=== PATIENT | male | born 1985 | race Caucasian/White ===

== ENCOUNTER 2016-10-22 20:13 | Emergency (ER) | payer OTHER ==
--- NOTE | ~2016-10-22 | CR172 ---
[facility] A Service of [facility] RADIOLOGY TEXT RESULTS PATIENT: JOSE FRENCH LOCATION: [facility] : 81 UNIT #: [id number] AGE: [address]: Osmany Bell MD SEX: M ORDER DR: [id number] [facility] [address] [facility] [place], [place] [address] [id number] E MR#: [id number] Acc #: [id number] NAME: JOSE FRENCH : 1985 SEX: M STUDY DATE/TIME: 10/22/2016 19:50 UNIT: [facility] ROOM: STUDY DESCRIPTION: CR Knee 3 Views Lt Attending Physician: Osmany Bell M.D. Ordering Physician: Osmany Bell M.D. Primary Care Physician: No Primary Care Physician MEDICAL IMAGING REPORT This report is preliminary unless electronic signature is present EXAM 3 views left knee DATE OF EXAMINATION 10/22/2016 HISTORY Left knee pain and swelling since 10/22/2016 after diving for basketball. COMPARISON None FINDINGS AP and lateral projection of the knee shows smooth articular anatomy without indication of fracture or dislocation at the major weight-bearing surface of the knee. There is no indication of radiopaque foreign body about the knee surface or joint effusion. IMPRESSION Normal knee. Dictated by... Jennifer Morris M.D. THIS IS AN ELECTRONICALLY VERIFIED REPORT Jennifer Morris M.D. at 10/23/2016 2:04 PM Marifer TD: 10/23/2016 10:16 JOB #: [id number] MEDICAL IMAGING REPORT COPY
[~2016-10-22 20:13] MED LIST: LORTAB 10/500 T1 TAB PO; LORTAB 5/500 TA1 TA1 PO; PREDNISONE PO
== END 2016-10-22 20:41 | disposition home or self-care (01) ==
LOC: CFTX 20:13
DX: S83.92XA Sprain of unspecified site of left knee, initial encounter (principal); F17.210 Nicotine dependence, cigarettes, uncomplicated; Z88.0 Allergy status to penicillin; Z88.5 Allergy status to narcotic agent; X50.1XXA Overexertion from prolonged static or awkward postures, initial encounter; Y92.89 Other specified places as the place of occurrence of the external cause
CPT/HCPCS: 29530; 73562; 99283

== ENCOUNTER → 2016-11-08 00:15 | Emergency (ER) | payer OTHER | END | disposition left against medical advice (07) | LOC: CED 00:15 | DX: Z53.21 Procedure and treatment not carried out due to patient leaving prior to being seen by health care provider (principal) ==

== ENCOUNTER 2017-01-25 20:06 | Emergency (ER) | payer OTHER ==
--- NOTE | ~2017-01-25 | CR111 ---
[facility] A Service of [facility] RADIOLOGY TEXT RESULTS PATIENT: JOSE FRENCH LOCATION: [facility] : 81 UNIT #: [id number] AGE: [address]: Ina Bailon APRN SEX: M ORDER DR: [id number] [place], [place] [address] [id number] E MR#: [id number] Acc #: [id number] NAME: JOSE FRENCH. : 1985 SEX: M STUDY DATE/TIME: 01/25/2017 21:02 UNIT: [facility] ROOM: STUDY DESCRIPTION: CR Finger 2 View 3rd Rt Attending Physician: Ina Bailon A.P.R.N. Ordering Physician: Ina Bailon A.P.R.N. MEDICAL IMAGING REPORT This report is preliminary unless electronic signature is present EXAM Right third digit series INDICATIONS Laceration and swelling to the distal right third digit after injury today. TECHNIQUE 3 views of the right third digit. COMPARISON STUDIES None. FINDINGS There is a minimally-displaced fracture along the proximal dorsal aspect of the distal phalanx of the third digit. Articular involvement. IMPRESSION Small minimally-displaced fracture along the proximal dorsal aspect distal phalanx right third digit. Dictated by... Florian Fuentes M.D. THIS IS AN ELECTRONICALLY VERIFIED REPORT Florian Fuentes M.D. at 01/26/2017 3:08 PM EED/pcl TD: 01/25/2017 22:44 JOB #: [id number] MEDICAL IMAGING REPORT [facility] A Service of [facility] RADIOLOGY TEXT RESULTS PATIENT: JOSE FRENCH LOCATION: [facility] : 81 UNIT #: [id number] AGE: [address]: Ina Bailon APRN SEX: M ORDER DR: Page 1 of 1 COPY
== END 2017-01-25 22:45 | disposition home or self-care (01) ==
LOC: CFTX 20:06 → CED 20:06 → CFTX 20:28
DX: S62.632A Displaced fracture of distal phalanx of right middle finger, initial encounter for closed fracture (principal); F17.210 Nicotine dependence, cigarettes, uncomplicated; Z88.0 Allergy status to penicillin; W21.03XA Struck by baseball, initial encounter; Y92.830 Public park as the place of occurrence of the external cause
CPT/HCPCS: 29130; 73140; 99283

== ENCOUNTER 2017-01-27 23:16 | Emergency (ER) | payer OTHER | END 2017-01-28 00:05 | disposition home or self-care (01) | LOC: CFTX 23:16 → CED 23:16 → CFTX 23:59 | DX: S62.634A Displaced fracture of distal phalanx of right ring finger, initial encounter for closed fracture (principal); Z88.0 Allergy status to penicillin; Z88.5 Allergy status to narcotic agent; F17.210 Nicotine dependence, cigarettes, uncomplicated; W22.8XXA Striking against or struck by other objects, initial encounter; Y92.830 Public park as the place of occurrence of the external cause | CPT/HCPCS: 99283 ==

== ENCOUNTER 2017-03-27 01:12 | Emergency (ER) | payer OTHER | END 2017-03-27 05:14 | disposition home or self-care (01) | LOC: CED 01:12 | DX: K08.89 Other specified disorders of teeth and supporting structures (principal); J44.9 Chronic obstructive pulmonary disease, unspecified; F41.9 Anxiety disorder, unspecified; F17.200 Nicotine dependence, unspecified, uncomplicated; Z88.5 Allergy status to narcotic agent; Z98.818 Other dental procedure status; Z88.0 Allergy status to penicillin | CPT/HCPCS: 99282 ==